=== PATIENT | female | born 1945 | race Caucasian/White ===

== ENCOUNTER 2018-05-14 14:01 | Outpatient (RCR) | payer MEDICARE, SELFPAY ==
--- NOTE | 2018-05-14 14:51 | PN_ITS ---
DATE: 05/14/18 Reporting period: 11/21/17 til 05/14/18 Referring provider: Jamaal Person DO Diagnosis: cervical spine OA SUBJECTIVE: Kathy reports she is holding up well. Did have increased left shoulder pain secondary to poor pillow posturing at night. She purchased a pillow that offers better support. She tends to sleep on her back. Standardized measure: 2% via NDI OBJECTIVE: Therapeutic procedures ([id number]). * x See flow sheet: reviewed her cervical stabilization program with proper positioning for cervical neutral incorporating deep neck flexors as well as proper scapula positioning. Did examine her left shoulder. She has full AROM with minimal pain during today's visit. She does complain of AM discomfort and pain with active elevation. Strength is 4+/5 for int/ext rotation. This is painfree. She has negative supraspinatus empty can, Sol[place] Luis and drop arm. Mildly (+) speeds left; (-) right. (-) belly press compression. She brings in a number of exercises she has been performing, given to her by prior P.T.s She requires verbal and tactile cueing for execution of her glenohumeral joint and upper back stabilizer strengthening. She makes excessive compensations with elbows flexing when performing shoulder extension as well as performing excessive shoulder extension with rows likely contributing to some of her symptoms. Direct treatment time: 2:15 til 3:00 P.M. Assessment: Mild cuff impingement noted on the left. This does not to be stemming from the cervical spine, as special compression testing with (-). At this point, she is holding up well regarding her hip. No complaints of hip pain. She does require continued skilled P.T., but this could certainly be done 1x every 2 to 3 weeks for progression of her HEP. She is very compliant with her HEP and is progressing well. ST: Patient independent and compliant with HEP - met 2: Decrease frequency of paresthesia symptoms - met 3: Patient independent with postural correction exercises - met LT: Independent with self-maintenance program - progressing toward and still remains appropriate. GCODES: Changing and maintaining body positions with a present status of GPG [id number] CI and projected goal of GPG 8982 CH based on my clinical observation and her NDI score. Plan: Follow up with Kathy x3 weeks. Will look to discharge at that time if she has no further questions. She was issued new t-band to replace old t-band that was breaking down. This has been given to her by another P.T. years ago. This consisted of black t-band for resisted rows and extension and then green t -band for ext rot strengthening. Please sign, date and return to our clinic with your approval................................ Jamaal Person D.O. /
== END 2018-05-29 23:59 | disposition home or self-care (01) ==
LOC: PT 14:01
PROVIDERS: PCP Internal Medicine; Referring Provider Internal Medicine; Visit Provider Internal Medicine
DX: M50.30 Other cervical disc degeneration, unspecified cervical region (principal); R20.2 Paresthesia of skin
CPT/HCPCS: 97110

== ENCOUNTER 2021-03-03 07:59 | Outpatient (REF) | payer MEDICARE, SELFPAY ==
[2021-03-03 15:43] LABS: Bilirubin Negative (Negative); Blood Trace-lysed (Negative); Clarity Clear (Clear); Glucose Negative (Negative); Ketones Negative (Negative); Leukocyte Esterase Negative (Negative); Nitrite Negative (Negative); Specific Gravity <= 1.005 (1.005-1.025); Urobilinogen 0.2 EU/dL (Up TO 0.2); pH 5.5 (5-8)
[2021-03-03 15:57] LABS: Bacteria Many HPF (Negative); Casts Negative LPF (Negative); Crystals Few Calcium Oxalate HPF (Negative); Epithelial Cells Many HPF (Negative); Mucus Negative (Negative); RBC Negative HPF (0-2)
[2021-03-03 15:58] LABS: C & S Indicated? No/Sq. Contamination
== END 2021-03-04 08:00 | disposition home or self-care (01) ==
LOC: LBN 07:59
PROVIDERS: PCP Internal Medicine; Visit Provider Physician Assistant
DX: N39.0 Urinary tract infection, site not specified (principal)
CPT/HCPCS: 81003; 81015

== ENCOUNTER 2021-03-16 19:02 | Outpatient (REF) | payer MEDICARE, SELFPAY | END 2021-03-16 19:03 | disposition home or self-care (01) | LOC: NCHCN 19:02 | PROVIDERS: PCP Internal Medicine; Visit Provider Physician Assistant | DX: N39.0 Urinary tract infection, site not specified (principal) | CPT/HCPCS: 87086 ==